=== PATIENT | female | born 1955 | race Caucasian/White ===

== ENCOUNTER → 2020-02-17 08:23 | Outpatient (CLI) | payer BC, SELFPAY ==
--- NOTE | 2020-02-17 14:16 | PFTCOMP ---
COMPLETE PULMONARY FUNCTION TEST INTERPRETATION Brief HPI: Patient is a 64 year old female, currently under the care of myself, who presents to [facility] for complete pulmonary function tests secondary to diagnosis of wheezing. Respiratory therapist reports good effort and reproducible results. Interpretation: Forced expiration spirometry shows no large airways obstructive ventilatory defect with an FEV1 of 107% predicted. There is no significant bronchodilator response by strict ATS criteria. Spirograms are of good quality and plateau normally. The respiratory flow volume loop shows a normal pattern. Lung volumes by body plethysmography show a normal total lung capacity at 5.5 L, 109% predicted. All other lung volumes are within normal limits. Diffusion capacity by carbon monoxide is normal at 95% predicted. The airway resistance is normal. No previous pulmonary function tests were available for review. Impression: These pulmonary function tests are within normal limits
== END ==
PROVIDERS: PCP Family Medicine; Referring Provider Internal Medicine Critical Care Medicine; Visit Provider Internal Medicine Critical Care Medicine
DX: R06.2 Wheezing (principal)
CPT/HCPCS: 94060; 94726; 94729

== ENCOUNTER → 2021-12-21 | Outpatient (CLI) | payer OTHER, SELFPAY ==
--- NOTE | 2021-12-21 10:05 | PFTCOMP ---
COMPLETE PULMONARY FUNCTION TEST INTERPRETATION Brief HPI: Patient is a 66 year old female, currently under the care of myself, who presents to [facility] for complete pulmonary function tests secondary to diagnosis of dyspnea. Respiratory therapist reports good effort and reproducible results. Interpretation: Forced expiration spirometry shows a mild large airways obstructive ventilatory defect with an FEV1 of 99% predicted. There is no significant bronchodilator response by strict ATS criteria, but a 10% improvement in FEV1 was noted. Spirograms are of good quality and plateau slowly, indicating slowly emptying areas of the lungs. The respiratory flow volume loop shows decreased expiratory flow rates at high lung volumes consistent with small airways obstruction. Lung volumes by body plethysmography show a normal total lung capacity at 5.17 L, 103% predicted. All other lung volumes are within normal limits. Diffusion capacity by carbon monoxide is normal at 98% predicted. The airway resistance is normal. Compared to previous pulmonary function tests from 02/17/2020, there is been a significant reduction in FEV1 by 15%, but did improve to nonsignificant using postbronchodilator values. Impression: Grossly normal pulmonary function test with some stigmata of reversible small airways disease. When compared to previous study, this is highly suggestive of asthma as an etiology.
== END | disposition home or self-care (01) ==
LOC: PSN 06:59
PROVIDERS: PCP Family Medicine; Referring Provider Internal Medicine Critical Care Medicine; Visit Provider Internal Medicine Critical Care Medicine
DX: R06.02 Shortness of breath (principal); R05.9 Cough, unspecified
CPT/HCPCS: 94060; 94726; 94729